=== PATIENT | female | born 1990 | race African-American/Black ===

== ENCOUNTER 2021-11-13 21:33 | Emergency (ER) | payer SELFPAY ==
--- NOTE | ~2021-11-13 | CT_ITS ---
EXAMINATION: CT abdomen pelvis wo con DATE: 11/13/2021 23:54 INDICATION: Bilateral flank pain for one day. Urinary frequency. Fever. TECHNIQUE: Computed tomography (CT) of the abdomen and pelvis was performed without intravenous contr ast. Automated exposure control and iterative reconstruction technique were employed. Exam dose: 285 .05 mGy-cm total exam DLP. COMPARISON: None. FINDINGS: The lung bases are clear of infiltrate or consolidation. Normal heart size. No pericardial or pleural effusion. The liver, gallbladder, bile duct, spleen, pancreas and pancreatic duct appear normal. Normal morphology of the adrenal glands. No renal mass lesion or urinary tract calculus or hydroureteronephrosis is evident. The urinary bladd er is unremarkable. Normal caliber of the abdominal aorta. No intraperitoneal or retroperitoneal or pelvic mass lesion or adenopathy or ascites is noted. The uterus and ovaries are unremarkable. There is mild to moderate free fluid in the posterior cul-de -sac may be physiologic. No bowel obstruction, bowel wall thickening, pneumatosis or intraperitoneal free air is detected. Small fat-containing umbilical hernia. Included skeletal structures are unremarkable. IMPRESSION: Bilateral moderate free fluid in the posterior cul-de-sac, possibly physiologic No urinary tract calculus or hydroureteronephrosis Reviewed, dictated and finalized at [facility] Reviewed, dictated and finalized at [facility] BINDING FOLDER IMPRESSION: Bilateral moderate free fluid in the posterior cul-de-sac, possibl y physiologic No urinary tract calculus or hydroureteronephrosis
[2021-11-13 21:34] VITALS: BP 124/66; PULSE 95; RESP 18; TEMP 39.1; O2SAT 100
[2021-11-13 23:12] VITALS: BP 105/69; PULSE 75; RESP 16; TEMP 37.3; O2SAT 100
--- NOTE | 2021-11-13 23:17 | ED.GENADULT ---
HPI - General Adult General Chief complaint: Fever Stated complaint: fever, UTI Time Seen by Provider: 11/13/21 23:05 History of Present Illness HPI narrative: Patient 31-year-old female who presents the emergency department with chief complaint of right flank pain and fever. The patient reports she has had some dysuria noticed her urine has been cloudy states that she is concerned that she may have a UTI. Patient reports she has sharp pain in her right flank reports that is not improved by anything nor is it worsened by anything. Patient denies nausea vomiting denies diarrhea Related Data Allergies Allergy/AdvReac Type Severity Reaction Status Date / Time venom-honey bee Allergy SWELLING Verified 11/13/21 23:15 Review of Systems Review of Systems: A 10 system review of systems was completed on the patient and is negative except for what is stated in the HPI. Nursing and ancillary documentation was reviewed. Exam Narrative: GENERAL: Well-appearing, well-nourished, and in no acute distress. HEAD: Normocephalic, atraumatic. EYES: PERRLA and EOMI. ENT: Nares clear, no rhinorrhea or epistaxis. Mucous membranes moist. NECK: Supple. CHEST: Clear to auscultation. No respiratory distress. HEART: Regular rate and rhythm. No murmur heard. Normal peripheral pulses. ABDOMEN: Soft, mild tenderness to palpation in the right lower quadrant, nondistended, normal active bowel sounds. EXTREMITIES: Normal range of motion. No edema. SKIN: Warm, dry, no rash. NEURO: No focal deficits. Alert and oriented x3. PSYCH: Normal mood and affect. Course Vital Signs Vital signs: Vital Signs Temperature 39.1 C H 11/13/21 21:34 Pulse Rate 95 11/13/21 21:34 Respiratory Rate 18 11/13/21 21:34 Blood Pressure 124/66 11/13/21 21:34 Pulse Oximetry 100 11/13/21 21:34 Temperature 37.3 C 11/13/21 23:12 Pulse Rate 75 11/13/21 23:12 Respiratory Rate 16 11/13/21 23:12 Blood Pressure 105/69 11/13/21 23:12 Pulse Oximetry 100 11/13/21 23:12 Medical Decision Making Vital Signs Vital Signs: Vital Signs Temperature 39.1 C H 11/13/21 21:34 Pulse Rate 95 11/13/21 21:34 Respiratory Rate 18 11/13/21 21:34 Blood Pressure 124/66 11/13/21 21:34 Pulse Oximetry 100 11/13/21 21:34 Temperature 37.3 C 11/13/21 23:12 Pulse Rate 75 11/13/21 23:12 Respiratory Rate 16 11/13/21 23:12 Blood Pressure 105/69 11/13/21 23:12 Pulse Oximetry 100 11/13/21 23:12 Lab Data Result diagrams: 11/13/21 23:33 11/13/21 23:33 Labs: Lab Results 11/13/21 11/13/21 11/13/21 Range/Units 23:33 23:33 23:33 WBC 9.7 (4.5-10.0) K/mm3 RBC 3.78 L (4.2-5.4) M/mm3 Hgb 11.9 L (12.0-15.0) g/dL Hct 34.1 L (37.0-47.0) % MCV 90.2 (80-100) fl MCH 31.5 (26-34) pg MCHC 34.9 (32-36) g/dl RDW 14.0 (11.5-14.5) % Plt Count 126 L (150-375) k/mm3 MPV 11.8 H (7.4-10.4) fl Immature Gran % (Auto) 0.3 (0-0.5) % Neut % (Auto) 79.5 H (45.5-73.1) % Lymph % (Auto) 9.5 L (18.3-44.2) % [place] % (Auto) 10.4 H (2.6-8.5) % Eos % (Auto) 0.0 (0-4.4) % Baso % (Auto) 0.3 (0.2-1.2) % Lymph # (Auto) 0.92 (0.9-3.2) K/mm3 [place] # (Auto) 1.0 H (0.1-0.6) K/mm3 Eos # (Auto) 0.0 (0-0.3) K/mm3 Baso # (Auto) 0.0 (0.0-0.1) K/mm3 Abs Immat Gran (auto) 0.03 (0.00-0.031) K/mm3 Absolute Neuts (auto) 7.7 H (1.3-6.7) K/mm3 Absolute Nucleated RBC 0.0 (0.0-0.012) K/mm3 Nucleated RBC % 0.0 (0.0-0.2) % Sodium 135 L (137-145) mmol/L Potassium 3.3 L (3.4-5.0) mmol/L Chloride 102 (98-107) mmol/L Carbon Dioxide 25 (22-30) mmol/L Anion Gap 8 (8-16) mmol/L BUN 11 (7-17) mg/dL Creatinine 0.80 (0.7-1.0) mg/dL Estim Creat Clear Calc 73 ml/min Estimated GFR > 60 (59 - ) Glucose 108 (65-110) mg/dL Lactic Acid 1.1 (0.7-2.1) mmol/L Calcium 8.9 (8.4-10.2) mg/dL Total Rafa
[2021-11-13] MEDS: SODIUM CHLORIDE 0.9% IV 1,000 ML 999 ML IV CONT (23:39)
[2021-11-13] MEDS: ONDANSETRON INJ 4 MG/2 ML VIAL IV PUSH (23:40)
--- NOTE | 2021-11-13 23:44 | PC.NURSE ---
Pt to CT at this time.
[2021-11-14 00:07] LABS: Basophils Percent Auto 0.3 % (0.2-1.2); Hematocrit 34.1 % (37.0-47.0); Hemoglobin 11.9 g/dL (12.0-15.0); Immature Granulocyte Absolute 0.03 K/mm3 (0.00-0.031); Immature Granulocyte Percent A 0.3 % (0-0.5); Lymphocytes Absolute Auto 0.92 K/mm3 (0.9-3.2); Lymphocytes Percent Auto 9.5 % (18.3-44.2); Mean Corpuscular HGB Conc 34.9 g/dl (32-36); Mean Corpuscular Hemoglobin 31.5 pg (26-34); Mean Corpuscular Volume 90.2 fl (80-100); Mean Platelet Volume 11.8 fl (7.4-10.4); Monocytes Percent Auto 10.4 % (2.6-8.5); Neutrophils Absolute Auto 7.7 K/mm3 (1.3-6.7); Neutrophils Percent Auto 79.5 % (45.5-73.1); Platelet Count Result 126 k/mm3 (150-375); Red Blood Count 3.78 M/mm3 (4.2-5.4); White Blood Count 9.7 K/mm3 (4.5-10.0)
[2021-11-14 00:16] VITALS: BP 115/70; PULSE 83; RESP 23; O2SAT 100
[2021-11-14 00:17] LABS: Lipase 17 U/L (23-300)
[2021-11-14 00:18] LABS: Lactic Acid Reflex 1.1 mmol/L (0.7-2.1)
[2021-11-14 00:24] LABS: Alanine Aminotransferase 23 U/L (4-35); Albumin Level 4.1 g/dL (3.5-5.1); Alkaline Phosphatase 59 U/L (38-126); Anion Gap 8 mmol/L (8-16); Aspartate Amino Transferase 29 U/L (14-36); Bilirubin,Total 1.4 mg/dL (0.2-1.3); Blood Urea Nitrogen 11 mg/dL (7-17); Calcium 8.9 mg/dL (8.4-10.2); Carbon Dioxide 25 mmol/L (22-30); Chloride 102 mmol/L (98-107); Estimated CRCL calculation 73 ml/min; Estimated Glomerular Filt Rate > 60; Glucose 108 mg/dL (65-110); Potassium 3.3 mmol/L (3.4-5.0); Sodium 135 mmol/L (137-145)
[2021-11-14 00:30] LABS: Add Urine Microscopic? YES; Appearance Urine Cloudy (Clear); Bacteria Urine Trace /hpf; Bilirubin Urine Negative (Negative); Blood Urine 3+ (Negative); Color Urine Yellow (Yellow); Glucose Urine UA Negative (Negative); Ketones Urine Negative (Negative); Leukocyte Esterase Ur 3+ LEU/UL (Negative); Mucus Urine Rare /lpf; Nitrate Urine Positive (Negative); Protein Urine 1+ mg/dL (Negative); RBC Urine 21-50 /hpf (0-2); Specific Grav Ur 1.013 (1.001-1.035); Squamous Epithelial Cell Urine Occasional /hpf (Few); WBC Clumps Urine Present /HPF; WBC Urine >75 /hpf
[2021-11-14 00:46] VITALS: BP 115/70; PULSE 72; RESP 19; O2SAT 99
[2021-11-14 01:31] VITALS: BP 113/63; PULSE 89; RESP 20; O2SAT 99
== END 2021-11-14 01:33 | disposition home or self-care (01) ==
PROVIDERS: Emergency Provider Emergency Medicine
DX: N12 Tubulo-interstitial nephritis, not specified as acute or chronic (principal)
CPT/HCPCS: 36415; 74176; 80053; 81001; 81025; 83605; 83690; 85025; 87077; 87086; 87088; 87186; 99284; J0131; J0696; J2405; J7030

== ENCOUNTER 2022-09-04 06:10 | Emergency (ER) | payer SELFPAY ==
--- NOTE | ~2022-09-04 | CT_ITS ---
EXAMINATION: CTA chest PE protocol DATE: 09/04/2022 10:51 INDICATION: Chest pain, shortness of breath and elevated d-dimer TECHNIQUE: Computed tomography (CT) pulmonary angiogram of the chest was performed with 100 mL Omnipa que-350 intravenous contrast. Additional 3D reconstructions utilizing coronal maximum intensity proje ction (MIP) were performed. Automated exposure control and iterative reconstruction technique were em ployed. The dose-length product was 151.95 mGy-cm. COMPARISON: None FINDINGS: Excellent contrast opacification of the pulmonary arteries. There is mild streak artifact from dense contrast in the superior vena cava and right atrium. No significant respiratory motion limiting diagn ostic quality study which demonstrates no pulmonary embolism. Minimal dependent atelectasis at the jhonny ng bases. No pneumonia, pulmonary edema, pleural effusion or pneumothorax. Heart size is normal. No p ericardial effusion. Thoracic aorta is normal in caliber with no dissection. No pathologically enlarg ed thoracic lymphadenopathy. Visualized upper abdomen and bones are unremarkable. IMPRESSION: 1. No pulmonary embolism or other acute cardiopulmonary disease. Reviewed, dictated and finalized at [facility]. 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
--- NOTE | ~2022-09-04 | XR_ITS ---
EXAMINATION: XR chest 2V DATE: 09/04/2022 06:51 INDICATION: Mid chest pain. TECHNIQUE: Frontal and lateral views of the chest were obtained. COMPARISON: CT abdomen and pelvis 11/13/2021 FINDINGS: There is no pneumonia, pleural effusion, pneumothorax. The heart size is normal. IMPRESSION: 1. No acute cardiopulmonary disease. Reviewed, dictated and finalized at [facility]. ER
[2022-09-04 06:14] VITALS: BP 116/69; PULSE 67; RESP 14; TEMP 37.2; O2SAT 100
--- NOTE | 2022-09-04 06:16 | ECG_ITS ---
Measurements Intervals [place] Rate: 69 P: 46 OR: 130 QRS: 43 QRSD: 97 T: 30 QT: 369 QTc: 396 Interpretive Statements SINUS RHYTHM INCOMPLETE RIGHT BUNDLE BRANCH BLOCK BASELINE ARTIFACT- I, II, III, AVR, AVL, AVF, V1, V6 BORDERLINE ECG NO PREVIOUS ECG AVAILABLE FOR COMPARISON Electronically Signed On 09-04-2022 7:50:30 WORKFORCE MANAGEMENT CONSULTANT by Anup Montenegro D.O.
[2022-09-04 06:29] VITALS: O2SAT 100
[2022-09-04 06:50] LABS: Basophils Percent Auto 1.1 % (0.2-1.2); Eosinophils Absolute Auto 0.1 K/mm3 (0-0.3); Eosinophils Percent Auto 1.6 % (0-4.4); Hematocrit 37.5 % (37.0-47.0); Immature Granulocyte Absolute 0.01 K/mm3 (0.00-0.031); Immature Granulocyte Percent A 0.3 % (0-0.5); Lymphocytes Absolute Auto 2.01 K/mm3 (0.9-3.2); Lymphocytes Percent Auto 55.2 % (18.3-44.2); Mean Corpuscular HGB Conc 34.7 g/dl (32-36); Mean Corpuscular Hemoglobin 31.3 pg (26-34); Mean Corpuscular Volume 90.1 fl (80-100); Mean Platelet Volume 11.4 fl (7.4-10.4); Monocytes Absolute Auto 0.2 K/mm3 (0.1-0.6); Monocytes Percent Auto 6.3 % (2.6-8.5); Neutrophils Absolute Auto 1.3 K/mm3 (1.3-6.7); Neutrophils Percent Auto 35.5 % (45.5-73.1); Platelet Count Result 155 k/mm3 (150-375); Red Blood Count 4.16 M/mm3 (4.2-5.4); Red Cell Distribution Width 13.2 % (11.5-14.5); White Blood Count 3.6 K/mm3 (4.5-10.0)
[2022-09-04 06:53] LABS: Alanine Aminotransferase 21 U/L (6-35); Albumin Level 4.4 g/dL (3.5-5.1); Alkaline Phosphatase 46 U/L (38-126); Anion Gap 13 mmol/L (8-16); Aspartate Amino Transferase 30 U/L (14-36); Bilirubin,Total 0.7 mg/dL (0.2-1.3); Blood Urea Nitrogen 11 mg/dL (7-17); Calcium 8.7 mg/dL (8.4-10.2); Carbon Dioxide 23 mmol/L (22-30); Chloride 104 mmol/L (98-107); Estimated CRCL calculation 81 ml/min; Estimated Glomerular Filt Rate > 60; Glucose 89 mg/dL (65-110); Lipase 34 U/L (23-300); Potassium 3.5 mmol/L (3.4-5.0); Sodium 140 mmol/L (137-145)
[2022-09-04 06:55] LABS: INR 1.1; Prothrombin Time 13.5 Seconds (11.1-14.7)
[2022-09-04 06:56] LABS: Partial Thromboplastin Time 34.7 SECONDS (22.3-36.8)
[2022-09-04 07:04] LABS: Troponin I < 0.012 ng/mL (0.000-0.034)
--- NOTE | 2022-09-04 07:31 | ED.CHESTPAIN ---
HPI - Chest Pain General Chief Complaint: Chest Pain Stated Complaint: chest pain Time Seen by Provider: 09/04/22 07:31 Source: patient History of Present Illness HPI narrative: 32 years old -[place] female presented to the ED with retrosternal chest sharp pain woke her up from sleep at 3 AM. 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 Patient also have a lot of stress lately, single mom, 3 kids. She denies any fever, chills, nausea, vomiting, back pain or radiation of pain. Patient reports pain worse with breathing or certain movement. Patient does not smoke or drink or uses drugs, does not take medicine at home. Patient started working as a CRIME SCENE TECHNICIAN 1 month ago Related Data Allergies Allergy/AdvReac Type Severity Reaction Status Date / Time venom-honey bee Allergy SWELLING Verified 11/13/21 23:15 Review of Systems Review of Systems: All systems reviewed & are unremarkable except as noted in HPI and below Exam Narrative: General appearance: Well-developed, well-nourished Skin: Normal color Head: Normocephalic, nontraumatic Eyes: Clear conjunctiva ENT: Oropharynx normal, ears normal, nose normal Neck: Supple, nontender Chest and respiratory: Airway patent, no respiratory distress, no accessory muscle use Heart: Regular rate/rhythm Abdomen: Soft, nontender, no organomegaly, quiet bowel sounds Vascular: Normal peripheral pulses, normal capillary refill. Musculoskeletal: Normal range of motion, nontender back Neurologic: Alert and oriented ?3, DIAMOND SIZER is normal as tested, no gross motor deficit Course Vital Signs Vital signs: Vital Signs Temperature 37.2 C 09/04/22 06:14 Pulse Rate 67 09/04/22 06:14 Respiratory Rate 14 09/04/22 06:14 Blood Pressure 116/69 09/04/22 06:14 Pulse Oximetry 100 09/04/22 06:14 Oxygen Delivery Room Air 09/04/22 06:14 Temperature 37.2 C 09/04/22 06:14 Pulse Rate 67 09/04/22 10:40 Respiratory Rate 18 09/04/22 10:40 Blood Pressure 125/87 09/04/22 10:40 Pulse Oximetry 99 09/04/22 10:40 Oxygen Delivery Room Air 09/04/22 06:29 MDM - Chest Pain Differential Diagnosis Differential diagnosis: Likely atypical chest pain, costochondritis, chest pain and other (Musculoskeletal pain, stress related symptoms) Lab Data Result diagrams: 09/04/22 06:34 09/04/22 06:34 Labs: Lab Results 09/04/22 09/04/22 09/04/22 Range/Units 06:34 06:34 06:34 WBC 3.6 L (4.5-10.0) K/mm3 RBC 4.16 L (4.2-5.4) M/mm3 Hgb 13.0 (12.0-15.0) g/dL Hct 37.5 (37.0-47.0) % MCV 90.1 (80-100) fl MCH 31.3 (26-34) pg MCHC 34.7 (32-36) g/dl RDW 13.2 (11.5-14.5) % Plt Count 155 (150-375) k/mm3 MPV 11.4 H (7.4-10.4) fl Immature Gran % (Auto) 0.3 (0-0.5) % Neut % (Auto) 35.5 L (45.5-73.1) % Lymph % (Auto) 55.2 H (18.3-44.2) % [place] % (Auto) 6.3 (2.6-8.5) % Eos % (Auto) 1.6 (0-4.4) % Baso % (Auto) 1.1 (0.2-1.2) % Lymph # (Auto) 2.01 (0.9-3.2) K/mm3 [place] # (Auto) 0.2 (0.1-0.6) K/mm3 Eos # (Auto) 0.1 (0-0.3) K/mm3 Baso # (Auto) 0.0 (0.0-0.1) K/mm3 Abs Immat Gran (auto) 0.01 (0.00-0.031) K/mm3 Absolute Neuts (auto) 1.3 (1.3-6.7) K/mm3 Absolute Nucleated RBC 0.0 (0.0-0.012) K/mm3 Nucleated RBC % 0.0 (0.0-0.2) % PT 13.5 (11.1-14.7) Seconds INR 1.1 APTT 34.7 (22.3-36.8) SECONDS D-Dimer 0.53 H (<0.48) ug/mL Sodium 140 (137-145) mmol/L Potassium 3.5 (3.4-5.0) mmol/L Chloride 104 (98-107) mmol/L Carbon Dioxide 23 (22-30) mmol/L Anion Gap 13 (8-16) mmol/L BUN 11 (7-17) mg/dL Cre
[2022-09-04 08:26] LABS: D Dimer 0.53 ug/mL (<0.48)
[2022-09-04 08:44] VITALS: BP 122/68; PULSE 61; RESP 18; O2SAT 99
--- NOTE | 2022-09-04 09:26 | PC.NURSE ---
pt made aware we need test. pt states she cannot go to the bathroom at this time.
[2022-09-04 10:38] LABS: Troponin I < 0.012 ng/mL (0.000-0.034)
[2022-09-04 10:40] VITALS: BP 125/87; PULSE 67; RESP 18; O2SAT 99
--- NOTE | 2022-09-04 10:41 | PC.NURSE ---
pt to CT scan at this time.
== END 2022-09-04 11:26 | disposition home or self-care (01) ==
PROVIDERS: Emergency Medicine; Emergency Provider Emergency Medicine
DX: R07.89 Other chest pain (principal); I45.10 Unspecified right bundle-branch block
CPT/HCPCS: 36415; 71046; 71275; 80053; 81025; 83690; 84484; 85025; 85380; 85610; 85730; 93005; 96365; 99284; J0131; Q9967

== ENCOUNTER 2024-07-08 11:22 | Emergency (ER) | payer SELFPAY ==
[2024-07-08 11:23] VITALS: BP 126/70; PULSE 62; RESP 18; TEMP 36.6; O2SAT 100
--- NOTE | 2024-07-08 12:48 | ED.URI ---
HPI - URI/Sore Throat General Chief Complaint: Upper Respiratory Infection Stated Complaint: uri Time Seen by Provider: 07/08/24 12:07 History of Present Illness HPI Narrative: 33-year-old female presenting with nausea and nasal congestion. States that for the last couple of days she has been feeling very run down and has had several episodes of emesis. States that she is still keeping food and fluids down. Also complains of a runny nose. States several people at work have colds. Complains of diarrhea. No chest pain or shortness of breath. No abdominal pain, dysuria. Just started her menstrual cycle. Related Data Allergies Allergy/AdvReac Type Severity Reaction Status Date / Time venom-honey bee Allergy SWELLING Verified 11/13/21 23:15 Review of Systems Review of Systems: All systems reviewed & are unremarkable except as noted in HPI and below Exam Narrative: GENERAL: Well-appearing, in no acute distress, pleasant cooperative HEAD: Normocephalic, atraumatic. EYES: PERRLA and EOMI. TMs normal bilaterally ENT: Mucous membranes moist. NECK: Supple. CHEST: Clear to auscultation. No respiratory distress. HEART: Regular rate and rhythm ABDOMEN: Soft, nontender, nondistended EXTREMITIES: Normal range of motion. SKIN: Warm, dry, no rash. NEURO: Alert and oriented x3. PSYCH: Normal mood and affect. Course Vital Signs Vital signs: Vital Signs Temperature 97.8 F 07/08/24 11:23 Pulse Rate 62 07/08/24 11:23 Respiratory Rate 18 07/08/24 11:23 Blood Pressure 126/70 07/08/24 11:23 Pulse Oximetry 100 07/08/24 11:23 Oxygen Delivery Room Air 07/08/24 11:23 Temperature 97.8 F 07/08/24 11:23 Pulse Rate 62 07/08/24 11:23 Respiratory Rate 18 07/08/24 11:23 Blood Pressure 126/70 07/08/24 11:23 Pulse Oximetry 100 07/08/24 11:23 Oxygen Delivery Room Air 07/08/24 12:22 MDM - URI/Sore Throat MDM Narrative Medical decision making narrative: 33-year-old female presenting with nausea, nasal congestion. Vitals within normal limits. Exam remarkable for the above. Negative for COVID-19. Patient left prior to completion of workup pending urinalysis. Differential Diagnosis Differential diagnosis: Likely upper respiratory infection, viral infection, influenza and other (UTI) Medical Records Attestation: I reviewed the patient's medical records. Lab Data Attestation: I reviewed the patient's lab results. Labs: Lab Results 07/08/24 07/08/24 07/08/24 Range/Units 12:19 13:14 13:15 Urine Color Light red H (Yellow) Urine Appearance Cloudy H (Clear) Urine pH 7.0 (5.0-9.0) Ur Specific [place] 1.020 (1.001-1.035) Urine Protein 2+ H (Negative) mg/dL Urine Glucose (UA) Negative (Negative) mg/dL Urine Ketones Negative (Negative) mg/dL Ur Blood (Man) 3+ H (Negative) Urine Nitrate Negative (Negative) Urine Bilirubin 1+ H (Negative) Urine Urobilinogen 1.0 (<2.0) mg/dL Leukocyte Esterase Rfl Negative (Negative) LEATHA/UL Urine RBC >100 H (0-2) /hpf Urine WBC 0-5 (0-3) /hpf Urine Bacteria 1+ /hpf POC Urine HCG, Qual Negative (Negative) Influenza A (RT-PCR) Negative (Negative) Influenza B (RT-PCR) Negative (Negative) SARS-CoV-2 RNA (RT-PCR) Negative (Negative) Critical Care Time Critical Care Time Critical Care Time: No Discharge Plan Discharge Clinical Impression: Nausea & vomiting Patient Disposition: Elopement After Seen by Prov Condition: Stable Prescriptions: No Action cefdinir 300 mg capsule 300 mg PO Q12H Qty: 14 0RF Follow-up/Referrals: UNKNOWN,DOCTOR [Primary Care Provider] -
[2024-07-08 13:01] LABS: Influenza A QL RT-PCR Negative (Negative); Influenza B QL RT-PCR Negative (Negative); SARS-CoV-2 RNA PCR Negative (Negative)
[2024-07-08 13:17] LABS: BEDSIDEPREGUCG Negative (Negative)
--- NOTE | 2024-07-08 14:35 | PC.NURSE ---
pt reported she was leaving and walked out of room 17. UA pending
[2024-07-08 15:23] LABS: Appearance Urine Cloudy (Clear); Color Urine Light Red (Yellow)
[2024-07-08 15:24] LABS: Add Urine Microscopic? YES; Bilirubin Urine 1+ (Negative); Blood Urine 3+ (Negative); Glucose Urine UA Negative (Negative); Ketones Urine Negative (Negative); Leukocyte Esterase Ur Negative LEU/UL (Negative); Nitrate Urine Negative (Negative); Protein Urine 2+ mg/dL (Negative)
[2024-07-08 15:25] LABS: Bacteria Urine 1+ /hpf; RBC Urine >100 /hpf (0-2); WBC Urine 0-5 /hpf (0-3)
== END 2024-07-08 14:37 | disposition left against medical advice (07) ==
LOC: ANHED 12:32
PROVIDERS: Emergency Provider Emergency Medicine
DX: R11.2 Nausea with vomiting, unspecified (principal); Z20.822 Contact with and (suspected) exposure to COVID-19
CPT/HCPCS: 81001; 81025; 87636; 99282; 99283

== ENCOUNTER 2025-06-22 12:53 | Emergency (ER) | payer SELFPAY ==
--- NOTE | 2025-06-22 13:47 | ED_ITS ---
HPI - Ear Problem General Chief complaint: Ear Stated complaint: b/l ear pain Time Seen by Provider: 06/22/25 13:20 Source: patient Mode of arrival: ambulatory Limitations: no limitations History of Present Illness HPI Narrative: This is a 34-year-old female that presents to the emergency department for bilateral ear discomfort. Ongoing over the last 2 weeks. Reports decreased hearing. Reports subjective fevers. Reports drainage from the ears. Related Data Allergies Allergy/AdvReac Type Severity Reaction Status Date / Time venom-honey bee Allergy SWELLING Verified 06/22/25 13:00 Review of Systems Review of Systems: All systems reviewed & are unremarkable except as noted in HPI and below PMFSH Past Medical History Medical History (Updated 06/22/25 @ 13:54 by Mona Astudillo PA-C) No active medical problems Exam Narrative: GENERAL: Well-appearing, well-nourished, and in no acute distress. HEAD: Normocephalic, atraumatic. EYES: EOMI. ENT: Nares clear, no rhinorrhea or epistaxis. Mucous membranes moist. Oropharynx without tonsillar hypertrophy exudate or other lesions. Bilateral TMs with serous effusion present, no erythema. External auditory canals are normal NECK: Supple. No adenopathy or masses. CHEST: Clear to auscultation. No respiratory distress. No wheezes rales or rhonchi HEART: Regular rate and rhythm. No murmur heard. Normal peripheral pulses. EXTREMITIES: Normal range of motion. No edema. SKIN: Warm, dry, no rash. NEURO: No focal deficits. Alert and oriented x3. PSYCH: Normal mood and affect Medical Decision Making MDM Narrative Medical decision making narrative: Patient presents emergency department for bilateral ear pain. She is afebrile and nontoxic appearing. She does have fluid behind the TMs, but no redness. External auditory canals are normal. Patient instructed to take daily Zyrtec, use Flonase. Will be given follow-up with ENT. She was given warnings to return to the ER Differential Diagnosis Differential Diagnosis: Serous otitis media, acute otitis media, otitis externa Critical Care Time Critical Care Time Critical Care Time: No Discharge Plan Discharge Clinical Impression: Serous otitis media Qualifiers: Chronicity: acute Laterality: bilateral Recurrence: not specified as recurrent Qualified Code(s): H65.03 - Acute serous otitis media, bilateral Patient Disposition: Home Condition: Stable Instructions: Fluid In The Ear (Serous Otitis Media) (ED) Additional Instructions: Return to the emergency department for worsening symptoms, or any other concerns Flonase for nasal congestion. Zyrtec for runny nose. Follow up with ENT for further management Patient Language: Malawian Prescriptions: No Action cefdinir 300 mg capsule 300 mg PO Q12H Qty: 14 0RF Follow-up/Referrals: Edgar Reveles MD [Physician, Ear, Nose, Throat] PHYSICIAN,CONTROL SYSTEMS SPECIALIST [Primary Care Provider, Internal Medicine]
[2025-06-22 14:12] VITALS: BP 116/69; PULSE 67; RESP 14; TEMP 36.9; O2SAT 99
== END 2025-06-22 14:07 | disposition home or self-care (01) ==
PROVIDERS: Emergency Provider Physician Assistant
DX: H65.03 Acute serous otitis media, bilateral (principal)
CPT/HCPCS: 99281